=== PATIENT | female | born 1995 | race Caucasian/White ===

== ENCOUNTER 2023-02-23 09:15 | Emergency (ER) | payer BC, SELFPAY ==
--- NOTE | ~2023-02-23 | XR_ITS ---
XR mandible min 4V DATE: 02/23/2023 10:05 INDICATION: Fall. Right mandible pain. TECHNIQUE: 4 views COMPARISON: None FINDINGS: No fracture, dislocation or bone destruction is evident. IMPRESSION: Negative Reviewed, dictated and finalized at location A. IMPRESSION: Negative
[2023-02-23 09:39] VITALS: BP 137/76; PULSE 94; RESP 18; TEMP 36.9; O2SAT 100
[2023-02-23 09:40] VITALS: BP 135/82; BP 135/83; BP 146/85; PULSE 68; PULSE 76
--- NOTE | 2023-02-23 09:42 | ED.GENADULT ---
HPI - General Adult General Chief complaint: Skin/Abscess/Foreign Body Stated complaint: PASSED OUT/CHIN INJURY Time Seen by Provider: 02/23/23 09:42 Source: patient Mode of arrival: ambulatory Limitations: no limitations History of Present Illness HPI narrative: 27-year-old female presents with complaint of pain to right jaw and laceration to chin. Patient states this morning she was at a [employer] workout class and passed out. Patient reports that she did not anything to drink or eat prior to attending the class. States after passing out the instructor elevated her legs and she came to quickly. Denies chest pain, palpitations, shortness of breath. After workout class she ate breakfast and is much better. Reports pain to right side of jaw with palpation. All systems reviewed and negative except as noted above. Related Data Home Medications Medication Instructions Recorded Confirmed multivitamin 1 tablet PO DAILY 01/22/23 02/23/23 Allergies Allergy/AdvReac Type Severity Reaction Status Date / Time NKDA Allergy Mild Anaphylaxis Uncoded 02/23/23 09:29 Review of Systems Review of Systems: CONSTITUTIONAL: Denies fever, chills, or sweats. EYES: Denies visual changes, redness, or discharge. ENT: Denies rhinorrhea, congestion, sore throat, or otalgia. CARDIOVASCULAR: Denies chest pain, palpitations, or edema. RESPIRATORY: Denies cough or dyspnea. GASTROINTESTINAL: Denies abdominal pain, nausea, vomiting, or diarrhea. GENITOURINARY: Denies dysuria or hematuria. SKIN: Denies rash or itching. Reports laceration to chin. MUSCULOSKELETAL: Denies back pain, joint pain, or myalgia. Reports pain to right side jaw. NEUROLOGIC: Denies headache, numbness, or weakness. PSYCHIATRIC: Denies anxiety or depression. All other systems reviewed are negative, except as documented in HPI. FOR[facility]LY [facility], LATER [facility] Past Medical History Medical History Chronic pain of right knee Chronic right hip pain Surgical History Surgical History History of eye surgery Family History Family History Other Asthma Breast cancer Depression Diabetes mellitus Heart disease Hypertension Social History Social History (Updated 01/22/23 @ 11:05 by Odessa Dominguez MA) Smoking status: Never smoker Second hand tobacco smoke exposure: No Alcohol intake: current Alcohol use details: socially Substance use: never Substance use type: does not use Lack of Transportation: No Lack of Food: Never True Concerned About Future Housing: No Difficulty Paying Gas/Electric Bills: No Currently Unemployed: No Difficulty w/ Childcare or Family Care: No Living arrangements: with family Occupation/Education: occupation Gender identity (if verbalized by the patient): Other Spiritual care concerns: No Agree to blood products: Yes Comments At time of signature, agree with nursing past medical, surgical, social and family history. There is no relevant family history pertinent to the presenting complaint. Exam Narrative: GENERAL: This is a well-nourished, well-developed patient, in no apparent distress. HEAD: normocephalic, atraumatic. EYES: PERRL. Sclera clear/white. Vision is grossly intact. Extraocular motions intact. EARS: External ears normal NOSE: External nose normal NECK: Neck supple, non-tender without lymphadenopathy, masses or thyromegaly. CARDIOVASCULAR: Regular rate and rhythm without murmurs, gallops, or rubs. RESPIRATORY: Clear to auscultation. Breath sounds equal bilaterally. No wheezes, rales, or rhonchi. SKIN: warm, Dry, with no suspicious lesions or rash, good texture and turgor. 1.5 cm laceration to chin. NEURO: awake, alert, and oriented to person, place and time. There were no obvious focal neurologic abnormalities. EXTREMITIES: No joint tend
== END 2023-02-23 10:55 | disposition home or self-care (01) ==
PROVIDERS: Emergency Provider Nurse Practitioner Family; PCP Physician Assistant Medical
DX: R55 Syncope and collapse (principal); S01.81XA Laceration without foreign body of other part of head, initial encounter; W19.XXXA Unspecified fall, initial encounter
CPT/HCPCS: 12051; 70110; 99213; G0463